=== PATIENT | male | born 1965 | race Native Hawaiian/Other Pacific Islander ===

== ENCOUNTER → 2017-11-26 18:55 | Outpatient (CLI) | payer OTHER ==
[~2017-11-26 18:55] MED LIST: ASA LOW STR81 MG PO; LIPITOR20 MG PO; METFORMIN HYDR500 MG PO
== END | disposition home or self-care (01) ==
LOC: AMB 18:55
DX: Z04.1 Encounter for examination and observation following transport accident (principal)

== ENCOUNTER 2017-11-26 19:52 | Emergency (ER) | payer OTHER ==
[~2017-11-26] VITALS: Ht 180.3 cm; Wt 109.8 kg
[2017-11-26] MEDS ORDERED: METFORMIN HYDR500 MG PO (20:04)
[2017-11-26] MEDS ORDERED: LIPITOR20 MG PO (20:05)
[2017-11-26] MEDS ORDERED: ASA LOW STR81 MG PO (20:05)
== END 2017-11-26 23:15 | disposition home or self-care (01) ==
LOC: ED 19:52
DX: S32.019A Unspecified fracture of first lumbar vertebra, initial encounter for closed fracture (principal); S00.83XA Contusion of other part of head, initial encounter; S80.02XA Contusion of left knee, initial encounter; S60.221A Contusion of right hand, initial encounter; V59.40XA Driver of pick-up truck or van injured in collision with unspecified motor vehicles in traffic accident, initial encounter
CPT/HCPCS: 96372; 99283; J1885